=== PATIENT | male | born 1960 | race Caucasian/White ===

== ENCOUNTER 2017-08-20 15:19 | Emergency (ER) | payer BC ==
[2017-08-20 15:50] VITALS: BP 124/69
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
== END 2017-08-20 16:47 | disposition home or self-care (01) ==
LOC: UCCORT 15:19
DX: S51.812A Laceration without foreign body of left forearm, initial encounter (principal); W27.2XXA Contact with scissors, initial encounter
CPT/HCPCS: 99203; G0463

== ENCOUNTER 2018-03-04 17:31 | Emergency (ER) | payer BC ==
[2018-03-04 18:39] VITALS: BP 139/80
--- NOTE | 2018-03-04 19:21 | UC ---
Skin Complaint HPI - HPI Summary HPI Summary: C/O tick bite right side of chest wall. pulled out, pulling off mouth parts. Tick on < 24 hours. - History of Current Complaint Chief Complaint: UCGeneralIllness Time Seen by Provider: 03/04/18 19:12 Stated Complaint: TICK Hx Obtained From: Patient Onset/Duration: Sudden Onset, Lasting Hours - 12 Skin Exposure Onset/Duration: Hours Ago - 14 Onset Severity: Mild Current Severity: Mild Pain Intensity: 0 Location: Discrete - right chest wall. Character: Redness Aggravating Factor(s): Nothing Alleviating Factor(s): Nothing Associated Signs & Symptoms: Negative: Diaphoresis, Shivering, Fever, Syncope, Tenderness Related History: Insect Bite/Sting - tick bite - Allergy/Home Medications Allergies/Adverse Reactions: Allergies Allergy/AdvReac Type Severity Reaction Status Date / Time No Known Allergies Allergy Verified 03/04/18 18:36 Home Medications: Home Medications Ascorbic Acid TAB* [Vitamin C TAB*] 1,000 mg PO DAILY 03/04/18 [History Confirmed 03/04/18] Review of Systems Is Patient Immunocompromised?: No All Other Systems Reviewed And Are Negative: Yes PMH/Surg Hx/FS Hx/Imm Hx Endocrine History: Dyslipidemia - Surgical History Surgical History: None Surgery Procedure, Year, and Place: ankle repair - Family History Known Family History: Positive: Cardiac Disease Negative: Diabetes - Social History Occupation: Employed Full-time Lives: With Family Alcohol Use: Occasionally Substance Use Type: None Smoking Status (MU): Former Smoker Type: Cigarettes Have You Smoked in the Last Year: No When Did the Patient Quit Smoking/Using Tobacco: 2003 - Immunization History Most Recent Tetanus Shot: 10 days ago Physical Exam Triage Information Reviewed: Yes Appearance: Well-Appearing, No Pain Distress, Well-Nourished Vital Signs: Initial Vital Signs Temp 98.0 F 03/04/18 18:31 Pulse 61 03/04/18 18:31 Resp 18 03/04/18 18:31 BP 139/80 03/04/18 18:31 Pulse Ox 98 03/04/18 18:31 Vital Signs Reviewed: Yes Neck exam: Normal Respiratory Exam: Normal Cardiovascular Exam: Normal Musculoskeletal Exam: Normal Neurological Exam: Normal Psychological Exam: Normal Skin: Positive: Other - tick bite right side chest wall. Course/Dx - Differential Diagnoses - Skin Complaint Differential Diagnoses: Abscess, Cellulitis, Tick Born Illness - Diagnoses Provider Diagnoses: Tick bite right chest wall. Discharge - Sign-Out/Discharge Documenting (check all that apply): Discharge/Admit/Transfer - Discharge Plan Condition: Stable Disposition: HOME Patient Education Materials: Tick Bite (ED) Referrals: Jose Ramon Ayon MD [Primary Care Provider] - Additional Instructions: Use the tick twister to avoid leaving the mouth parts in. - Billing Disposition and Condition Condition: STABLE Disposition: HOME
== END 2018-03-04 19:29 | disposition home or self-care (01) ==
LOC: UCCORT 17:31
DX: S20.361A Insect bite (nonvenomous) of right front wall of thorax, initial encounter (principal); W57.XXXA Bitten or stung by nonvenomous insect and other nonvenomous arthropods, initial encounter; Y92.9 Unspecified place or not applicable; Z87.891 Personal history of nicotine dependence
CPT/HCPCS: 99211; G0463